=== PATIENT | male | born 1985 | race Caucasian/White ===

== ENCOUNTER 2019-02-16 05:12 | Emergency (ER) | payer OTHER ==
[~2019-02-16] VITALS: Ht 182.9 cm; Wt 108.9 kg
[~2019-02-16 05:12] MED LIST: Amoxicillin500 MG PO; Bentyl20 MG PO; CLON.2 PO; CYCL10 PO; Catapres0.2 MG PO; Cleocin HCl300 MG PO; HYDACE5 PO; LORA2 PO; METH40 PO; Naprosyn500 MG PO; PENVK250 PO; PROM25 PO; Peridex480 ML SS; Prednisone20 MG PO; TRAM50 PO
[2019-02-16 05:38] LABS: BASOPHILS ABSOLUTE AUTO 0.06 K/mm3 (0.00-0.23); BASOPHILS PERCENT AUTO 1 % (0-2); EOSINOPHILS ABSOLUTE AUTO 0.25 K/mm3 (0.00-0.68); EOSINOPHILS PERCENT AUTO 2 % (0-6); Hematocrit 47.4 % (37.0-53.0); Hemoglobin 16.1 g/dL (13.5-17.5); IMMATURE GRAN ABSOLUTE AUTO 0.05 K/mm3 (0.00-0.10); IMMATURE GRAN PERCENT AUTO 0 % (0-1); LYMPHOCYTES ABSOLUTE AUTO 2.88 K/mm3 (0.84-5.20); LYMPHOCYTES PERCENT AUTO 25 % (21-46); MONOCYTES ABSOLUTE AUTO 1.05 K/mm3 (0.16-1.47); MONOCYTES PERCENT AUTO 9 % (4-13); Mean Corpuscular HGB 31.1 pg (26.0-34.0); Mean Corpuscular Volume 92 fL (80-100); Mean Platelet Volume 9.9 fL (9.1-12.4); NEUTROPHILS ABSOLUTE AUTO 7.22 K/mm3 (1.96-9.15); NEUTROPHILS PERCENT AUTO 63 % (41-73); Platelet Count 318 K/mm3 (150-400); RDW Coefficient Variation 11.8 % (11.7-14.2); RDW Standard Deviation 39.8 fL (35.1-46.3); Red Blood Cell Count 5.18 M/mm3 (4.30-5.90); White Blood Cell Count 11.51 K/mm3 (4.00-11.30)
[2019-02-16 06:01] LABS: Alanine Aminotransfer (ALT/SGP 32 U/L (12-78); Albumin, Blood 4.1 g/dL (3.4-5.0); Alk Phos 57 U/L (50-136); Anion Gap 8 mmol/L (6-16); Aspartate Aminotrans (AST/SGOT 15 U/L (12-37); Bilirubin, Total 0.4 mg/dL (0.1-1.0); Blood Urea Nitrogen 10 mg/dL (8-24); Bun/Creatinine Ratio 11.7 (12.0-20.0); CO2, Blood 29 mmol/L (21-32); Calcium, Blood 9.5 mg/dL (8.5-10.1); Chloride, Blood 103 mmol/L (98-108); Creatinine, Blood 0.86 mg/dL (0.60-1.20); Glomerular Filtration Rate >60 (60-); Glucose, Blood 107 mg/dL (70-99); Potassium, Blood 3.4 mmol/L (3.5-5.5); Sodium, Blood 140 mmol/L (136-145); Total Protein, Blood 8.1 g/dL (6.4-8.2)
[2019-02-16] MEDS ORDERED: ONDA4ODT MM (06:21)
[2019-02-16] MEDS ORDERED: Cleocin HCl150 MG PO (06:22)
== END 2019-02-16 07:35 | disposition home or self-care (01) ==
LOC: ER 05:12
PROVIDERS: Emergency Medicine
DX: R10.13 Epigastric pain (principal); R11.2 Nausea with vomiting, unspecified; K02.9 Dental caries, unspecified; F17.210 Nicotine dependence, cigarettes, uncomplicated; Z79.899 Other long term (current) drug therapy
CPT/HCPCS: 36415; 80053; 83690; 85025; 96361; 96374; 96375; 99284-25; J2405; J2550; J7030

== ENCOUNTER 2020-07-19 16:33 | Emergency (ER) | payer OTHER ==
[~2020-07-19] VITALS: Ht 177.8 cm; Wt 127.0 kg
[~2020-07-19 16:33] MED LIST changes: +Cleocin HCl150 MG PO; +ONDA4ODT MM
[2020-07-19] MEDS ORDERED: BUPRENORPHIN-N1 EACH PO (16:53)
[2020-07-19] MEDS ORDERED: Amoxicillin500 MG PO (16:54)
== END 2020-07-19 16:58 | disposition home or self-care (01) ==
LOC: ER 16:33
DX: K02.9 Dental caries, unspecified (principal); F17.210 Nicotine dependence, cigarettes, uncomplicated; Z79.899 Other long term (current) drug therapy
CPT/HCPCS: 99282

== ENCOUNTER 2020-12-15 12:25 | Emergency (ER) | payer OTHER ==
[~2020-12-15] VITALS: Ht 182.9 cm; Wt 136.1 kg
[~2020-12-15 12:25] MED LIST changes: +BUPRENORPHIN-N1 EACH PO
[2020-12-15] MEDS ORDERED: AMOCLA875 PO (13:14)
== END 2020-12-15 13:27 | disposition home or self-care (01) ==
LOC: ER 12:25
DX: K04.7 Periapical abscess without sinus (principal); F17.210 Nicotine dependence, cigarettes, uncomplicated; Z79.899 Other long term (current) drug therapy
CPT/HCPCS: 99282